=== PATIENT | male | born 1945 | race Caucasian/White ===

== ENCOUNTER → 2017-01-22 | Outpatient (CLI) | payer OTHER ==
[~2017-01-22] MED LIST: GADAVIST IV PRN
[2017-01-22 11:16] LABS: BLOOD UREA NITROGEN 11 mg/dl (7-18)
--- NOTE | 2017-01-22 12:18 | DIAGNOSTIC IMAGING REPORT ---
MRI OF THE BRAIN (IAC'S) WITHOUT A WITH GADOLINIUM CLINICAL HISTORY: ACOUSTIC NEUROMA-- COMPARISON STUDY: No previous studies for comparison. TECHNIQUE: MRI of the brain was performed from the vertex to the skull base utilizing various T1 and T2 weighted sequences. Following the IV administration of 9 mL of Gadavist contrast, additional enhanced images were obtained. The patient was imaged under 0.7 Alejandra open MRI scanner. FINDINGS: The examination consists of pre and post gadolinium thin section axial T1-weighted images through the IACs, pre and post gadolinium whole brain axial T1-weighted images, as well as a post gadolinium thin section T1-weighted sequence through the IACs. There is an enhancing 5 mm left intracanalicular lesion, possibly representing an acoustic neuroma. Resolution is limited due to the mid field magnet strength and patient motion. IMPRESSION: Technically limited study. 5 mm enhancing left intracanalicular lesion possibly representing an acoustic neuroma. If follow-up studies are contemplated, it would be advantageous to have these performed on a high-field magnet. Electronically signed by: Benedicto Caballero M.D. 01/22/2017 12:17 PM Dictated Date/Time: 01/22/2017 12:10 PM
== END | disposition home or self-care (01) ==
LOC: C.OPENMRI 10:42
PROVIDERS: ATTEND Otolaryngology
DX: H90.A32 Mixed conductive and sensorineural hearing loss, unilateral, left ear with restricted hearing on the contralateral side (principal); D33.3 Benign neoplasm of cranial nerves; H90.41 Sensorineural hearing loss, unilateral, right ear, with unrestricted hearing on the contralateral side